=== PATIENT | female | born 1970 | race Caucasian/White ===

== ENCOUNTER → 2017-06-10 | Outpatient (CLI) | payer OTHER ==
[~2017-06-10] MED LIST: SINCALIDE 5 MCG/5 ML VIAL IV ONE
--- NOTE | 2017-06-10 12:08 | RADRPT ---
EXAM DATE/TIME: 06/10/2017 09:38 [place] COMPARISON: No previous studies available for comparison. INDICATIONS : Abdominal pain, nausea and vomiting. DOSE: 4.1 mCi Tc99m Mebrofenin IV MEDICATION: 1.6 mcg Cholecystokinin IV; No symptomatic response. Cholecystokinin was administered by slow infusion over 8 minutes beginning at 60 minutes. MEDICAL HISTORY : Hypothyroidism. SURGICAL HISTORY : Gastric bypass. ENCOUNTER: Initial ACUITY: 1 month PAIN SCALE: 4/10 LOCATION: Right upper quadrant TECHNIQUE: Following the intravenous administration of radiotracer, dynamic sequential image were performed with continuous acquisition. Time-activity curves were generated. FINDINGS: HEPATIIC KINETICS: There is prompt uptake of radiotracer in the liver. No focal defects are seen. There is normal rate of washout from the hepatic parenchyma. BILIARY CLEARANCE: Activity is first seen in the extrahepatic biliary system at 10 minutes. There is normal excretion i nto the small bowel. GALLBLADDER: Activity is first seen in the gallbladder at 25 minutes. POST CHOLECYSTOKININ: After Cholecystokinin administration, there is prompt emptying of the gallbladder with a 35 % ejectio n fraction. Common bile duct kinetics are normal and there is no evidence of biliary obstruction. BILIARY ENTERIC REFLUX: None observed. CLINICAL: The patient was asymptomatic after Cholecystokinin administration. CONCLUSION: Unremarkable HIDA scan. No biliary tract obstruction. Uriel Toledo MD on June 10, 2017 at 12:01 Board Certified Radiologist. This report was verified electronically.
== END ==
LOC: HRAD 08:05
PROVIDERS: ATTEND Internal Medicine Gastroenterology
DX: R10.13 Epigastric pain (principal); R10.12 Left upper quadrant pain; D50.9 Iron deficiency anemia, unspecified
CPT/HCPCS: 78227; A9537; J2805